=== PATIENT | male | born 1950 | race Caucasian/White ===

== ENCOUNTER 2022-09-13 06:32 | Day surgery (SDC) | payer MEDICARE, OTHER ==
[2022-09-11 14:44] LABS: Absolute Lymphocytes (CBC) 0.6 K/uL (0.7-4.9); Hematocrit 41.4 % (39.6-49.0); Lymphocytes % 13.7 % (15.3-44.8); MCV 87.9 fL (80-100); MPV 8.9 fL (7.6-11.3); RBC Red Blood Cell Count 4.72 M/uL (4.33-5.43)
[2022-09-11 14:48] LABS: Protime INR 1.03
[2022-09-11 14:56] LABS: Potassium 4.4 mmol/L (3.5-5.1)
--- NOTE | 2022-09-11 15:10 | RAD REPORT ---
EXAM DESCRIPTION: Glen Magallon (2 Views)09/11/2022 2:50 pm CLINICAL HISTORY: Preop for cardiac catheterization/hypertension COMPARISON: 2019 FINDINGS: The lungs appear clear of acute infiltrate. The heart is normal size IMPRESSION: No acute abnormalities displayed
--- NOTE | 2022-09-12 17:35 | EKG ---
Test Date: 2022-09-11 Test Time: 14:28:21 Vocational Director: ALFONSO MEASUREMENT RESULTS: Intervals: Rate: 65 FL: 152 QRSD: 86 QT: 400 QTc: 416 [place]: P: 3 FL: 152 QRS: 69 T: 50 INTERPRETIVE STATEMENTS: Normal sinus rhythm Normal ECG Compared to ECG 06/04/2006 07:30:42 Ventricular premature complex(es) no longer present Myocardial infarct finding no longer present Electronically Signed On 09-12-22 17:32:44 QUALITY ASSURANCE ADVISOR by Colton Harris
[~2022-09-13 06:32] MED LIST: ASPIRIN 325 MG TAB ONE; ATROPINE SULF 1 MG/10 ML SYR IV ONE; CLOPIDOGREL 75 MG TABLET ONE; FENTANYL CITR 100 MCG/2 ML ONE; HEPA 1000U/500MLS 2,000 UNIT/1,000 ML BAG IV ONE; HEPARIN 10,000 UNIT/10 ML VIAL IV ONE; HEPARIN 5000 UNIT/ML 1 ML VIAL ONE; LIDOCAINE 1% 20 ML MDV ONE; MIDAZOLAM HCL 2 MG/2 ML INJ ONE; NITROGLYCERIN 100 MCG/ML SYR (for cath lab use only) IV ONE; NITROGLYCERIN/D5W 25 MG/250 ML BTL IV ONE; TICAGRELOR 90 MG TABLET PO ONE; VERAPAMIL HCL 10 MG/4 ML VIAL IV ONE
[2022-09-13] MEDS ORDERED: NA CHLORIDE 0.9% 500 ML ONE (06:34)
[2022-09-13 06:41] VITALS: TEMP 97.6
[2022-09-13 09:48] VITALS: BP 140/62; O2SAT 97
--- NOTE | 2022-09-13 12:08 | OP ---
Date of Procedure: 09/13/2022 Surgeon: PEGGY MCMANUS Procedures Performed: 1.Selective coronary angiogram. 2.Left heart catheterization. Indication: Abnormal stress test. Access: Right radial artery 6-Dominican closed with TR band. Complications: None. Bleeding: Less than 10 mL. Anesthesia: Total sedation time was 20 minute. Used fentanyl and Versed. Description Of Procedure: After risks, benefits, alternatives were explained, the patient agreed to the procedure and signed informed consent. The patient was brought into the cardiac catheterization laboratory, prepped and draped in the usual sterile fashion. Then, we accessed right radial artery u [employer] pediatric micropuncture kit, placed a 6-Dominican Slender sheath, and took 5-Dominican [place] [address] into the aortic root over a J-wire, engaged left main and then the RCA, and took standard views a nd catheter was pushed over the wire into the LV, measured the LVEDP and pullback did not record any gradient. Then, we removed the catheter and the sheath, placed TR band with good hemostasis. Findings: 1.Left main; large and long with luminal irregularities. 2.LAD has a long proximal stent with mild stent 20% iSR and then luminal irregularities. Diagonal b ranches are with luminal irregularities. 3.Left circumflex; small, nondominant. No disease. 4.RCA; large, dominant with proximal stent that has 30% to 40% stenosis iSR and then mid multiple 20 % to 30% lesions. 5.Elevated LVEDP around 20 mmHg. Conclusion: 1.Patent RCA and LAD stents. 2.Mild coronary artery disease elsewhere. 3.Mildly elevated LVEDP. Plan: Medical management. SR/MODL Voice ID: [id number] Report ID: [id number]
== END 2022-09-13 09:40 | disposition home or self-care (01) ==
LOC: CCL 06:32
PROVIDERS: ATTEND Internal Medicine
DX: I25.10 Atherosclerotic heart disease of native coronary artery without angina pectoris (principal); T82.855A Stenosis of coronary artery stent, initial encounter; I10 Essential (primary) hypertension; E78.2 Mixed hyperlipidemia; I34.0 Nonrheumatic mitral (valve) insufficiency; J44.9 Chronic obstructive pulmonary disease, unspecified; Z87.891 Personal history of nicotine dependence; Z79.82 Long term (current) use of aspirin; Z79.02 Long term (current) use of antithrombotics/antiplatelets; Z79.899 Other long term (current) drug therapy; Z82.49 Family history of ischemic heart disease and other diseases of the circulatory system
CPT/HCPCS: 93005; 85025; 80048; 36415; 85610; 85730; 71046; 93458; C1893; Q9966; J1644; J2001 ×2; J2250; J3010; J7040; 93454; J0461